=== PATIENT | female | born 1985 | race Caucasian/White ===

== ENCOUNTER → 2016-12-10 | Outpatient (CLI) | payer BC ==
--- NOTE | 2016-12-10 10:24 | US ---
EXAMINATION TYPE: US abdomen complete DATE OF EXAM: 12/10/2016 COMPARISON: NONE CLINICAL HISTORY: RUQ Pain R10.11. pt states ruq pain, worse after eating EXAM MEASUREMENTS: Liver Length: 14.1 cm Gallbladder Wall: 0.2 cm CBD: 0.5 cm Spleen: 9.6 cm Right Kidney: 10.6 x 3.5 x 4.8 cm Left Kidney: 11.2 x 4.3 x 4.9 cm Pancreas: wnl Liver: wnl Gallbladder: completely contracted with stones, strong shadowing, no obvious wall thickening or young cholecystic fluid but shadowing limits this Evidence for sonographic Lin's sign: tender CBD: wnl Spleen: wnl Right Kidney: ? mildly echogenic pyramids Left Kidney: ? mildly echogenic pyramids Upper IVC: wnl Abd Aorta: wnl The liver is homogenous. The intrahepatic portion of the IVC and proximal abdominal aorta are within normal limits. Common bile duct is unremarkable. The visualized portions of the pancreas are homo genous. The spleen is unremarkable. Kidneys are symmetric and free of hydronephrosis. No renal les ions are seen. IMPRESSION: Cholelithiasis.
[2016-12-10 11:12] LABS: ALT 23 U/L (9-52); AST 17 U/L (14-36); Alkaline Phosphatase 47 U/L (38-126); Amylase 42 U/L (30-110); Anion Gap 9 mmol/L; Blood Urea Nitrogen 12 mg/dL (7-17); Calcium 9.5 mg/dL (8.4-10.2); Carbon Dioxide 25 mmol/L (22-30); Chloride 109 mmol/L (98-107); Glucose 81 mg/dL (74-99); Non-African American GFR(MDRD) >60 (>60 ml/min/1.73 sqM); Potassium 4.3 mmol/L (3.5-5.1); Sodium 143 mmol/L (137-145); Total Bilirubin 0.9 mg/dL (0.2-1.3); Total Protein 7.3 g/dL (6.3-8.2)
[2016-12-10 11:17] LABS: Basophils # (A) 0.1 k/uL (0-0.2); Basophils % (A) 1 %; CHCM 32.7; Eosinophils # (A) 0.3 k/uL (0-0.7); Eosinophils % (A) 4 %; HCT 38.6 % (34.0-46.0); HGB 12.6 gm/dL (11.4-16.0); Luc # (Auto) 0.17; Luc % (Auto) 2; Lymphocytes % (A) 27 %; MCH 30.2 pg (25.0-35.0); MCHC 32.7 g/dL (31.0-37.0); MCV 92.2 fL (80.0-100.0); Mean Platelet Volume 7.5; Monocytes # (A) 0.4 k/uL (0-1.0); Monocytes % (A) 6 %; Neutrophils # (A) 4.6 k/uL (1.3-7.7); Neutrophils % (A) 61 %; RBC 4.19 m/uL (3.80-5.40); RDW 12.7 % (11.5-15.5); WBC 7.6 k/uL (3.8-10.6); WBC (Perox) 8.23
== END | disposition home or self-care (01) ==
LOC: RADUSWWP 09:50
PROVIDERS: ATTEND Surgery
DX: K80.20 Calculus of gallbladder without cholecystitis without obstruction (principal); R10.11 Right upper quadrant pain
CPT/HCPCS: 76700; 80053; 82150; 85025

== ENCOUNTER 2016-12-11 12:08 | Day surgery (SDC) | payer BC ==
[2016-12-10 14:39] VITALS: BMI 19.3
--- NOTE | 2016-12-10 19:12 | HP ---
DATE OF ADMISSION: 12/11/2016 CHIEF COMPLAINT: Chronic cholecystitis. HISTORY OF PRESENT ILLNESS: This patient is a 31-year-old female who comes to the office today complaining of right upper quadrant pain. This has been increasing in severity and frequency over the last several weeks. She says she is having episodes of pain almost daily at this point. These usually last for 30 to 45 minutes at a time. She has nausea but no vomiting. She is unable to correlate to any specific foods. She has not noticed any change in the color of her skin, urine or stool. An ultrasound was done today showing a gallbladder completely filled with stones without obvious wall thickening. Labs are pending. Patient denies rectal bleeding or melena. PAST MEDICAL HISTORY: Denies. PAST SURGICAL HISTORY: 1. D&C. 2. Appendectomy. 3. Tubal ligation. MEDICATIONS: None. ALLERGIES: NONE. PHYSICAL EXAM: HEENT is normocephalic, sclerae anicteric. Chest is clear. HEART: Regular rate and rhythm. ABDOMEN: Soft. Mild right upper quadrant tenderness. No rebound or guarding. IMPRESSION: A 31-year-old female with chronic cholecystitis. PLAN: 1. Check preoperative lab work. 2. Proceed with cholecystectomy tomorrow. Risks of bleeding, infection, biloma formation, common bile duct injury, retained CBD stone, trocar-related injury and conversion to an open procedure were discussed. Postoperative diarrhea was also discussed as a possibility. The patient understands and wishes to proceed.
[~2016-12-11 12:08] MED LIST: HEPARIN SODIUM,PORCINE 5,000 UNIT/ML 1 ML VIAL SQ ONE; ceFAZolin 2 GM in SODIUM CHLORIDE 0.9% 100 ML IVPB ONE
[2016-12-11] MEDS ORDERED: MIDAZOLAM 2 MG/2 ML VIAL IV PRN (12:36)
[2016-12-11] MEDS ORDERED: ONDANSETRON 4 MG/2 ML VIAL IVP ONE (12:36)
[2016-12-11] MEDS ORDERED: DEXAMETHASONE SOD PHOSPHATE 10 MG/ML 1 ML VIAL IV ONE (12:36)
[2016-12-11] MEDS ORDERED: LIDOCAINE 1% 20 ML VIAL (10MG/ML) FOR IV START INTRADERMA PRN (12:36)
[2016-12-11] MEDS ORDERED: SCOPOLAMINE 1.5MG/72HR PATCH TRANSDERM ONE (12:36)
[2016-12-11] MEDS ORDERED: LACTATED RINGERS 1,000 ML IV SCH (12:45)
[2016-12-11] MEDS ORDERED: SUCCINYLCHOLINE CHLORIDE 100 MG/5 ML SYR IV ONE (14:24)
[2016-12-11] MEDS ORDERED: HYDROmorphone (PF) 1 MG/ML ONE (14:24)
[2016-12-11] MEDS ORDERED: NEOSTIGMINE 1 MG/ML 10 ML VIAL ONE (14:24)
[2016-12-11] MEDS ORDERED: GLYCOPYRROLATE 0.2 MG/ML 2 ML VIAL ONE (14:24)
[2016-12-11] MEDS ORDERED: LIDOCAINE 1% INJ 10MG/ML (20 ML MDV) ONE (14:24)
[2016-12-11] MEDS ORDERED: PROPOFOL 10 MG/ML 20 ML VIAL IV ONE (14:24)
[2016-12-11] MEDS ORDERED: MIDAZOLAM 2 MG/2 ML VIAL ONE (14:24)
[2016-12-11] MEDS ORDERED: fentaNYL (PF) 50 MCG/ML 2 ML AMP ONE (14:24)
[2016-12-11] MEDS ORDERED: ROCURONIUM BROMIDE 10 MG/ML 10 ML VIAL IV ONE (14:24)
[2016-12-11] MEDS ORDERED: BUPIVACAIN-EPI 0.25%-1:200,000 30 ML VIAL SQ ONE (14:48)
[2016-12-11] MEDS ORDERED: LACTATED RINGERS 1,000 ML IV ONE (15:32)
[2016-12-11 15:56] VITALS: TEMP 97.2
[2016-12-11] MEDS ORDERED: HYDROcodone/APAP 5-325MG 1 EACH TAB PO PRN (16:15)
[2016-12-11] MEDS ORDERED: NALOXONE 0.4 MG/ML 1 ML VIAL IV PRN (16:15)
--- NOTE | 2016-12-11 16:19 | P.OP ---
Date of Procedure: 12/11/16 Preoperative Diagnosis: Postoperative Diagnosis: Procedure(s) Performed: PREOPERATIVE DIAGNOSIS: Chronic cholecystitis POSTOPERATIVE DIAGNOSIS: Same PROCEDURE: Laparoscopic cholecystectomy SURGEON: Hansa EBL: Minimal see anesthesia record ANESTHESIA: Gen. COMPLICATIONS: None OPERATIVE PROCEDURE: The patient was brought and placed on the operating room table in the supine position. The patient was placed under general anesthesia at that time. The abdomen was prepped and draped in the usual sterile fashion. A small vertical infraumbilical incision was made. The fascia was grasped with the Pattie forceps. The fascia was retracted anteriorly. The Veress needle was advanced into the peritoneal cavity. The saline drop test was normal. Insufflation took place up to 15 mmHg. A 5 mm optical trocar was advanced and the peritoneal cavity. 2 additional 5 mm trochars were placed in the right upper quadrant under direct visualization. A 10 mm trocar was advanced into the epigastric incision site. The gallbladder did have evidence of chronic inflammation with a thickened wall. There were numerous gallstones evident in the gallbladder. The gallbladder was retracted superiorly and laterally. The peritoneum overlying the infundibulum was bluntly dissected. The patient's cystic duct was visualized. There was a stone present in the cystic duct region. The duct itself was quite prominent in size. Thankfully given this patient's thin habitus I was able to visualize the junction with the bile duct quite nicely. I also was able to visualize the bifurcation of the hepatic duct. The tissues around the cystic duct were carefully dissected. After doing so the cystic duct was divided after placing a 2-0 Ethibond stitch tied down using the tie knot device and also a clip on the patient's side and a single clip on the specimen side. The patient had a few small branches of the cystic artery that were individually clipped. There was also noted to be a vessel running along the posterior wall the gallbladder that was divided using the Ligaclip. The gallbladder was then removed from the liver bed using electrocautery. The gallbladder was then removed from the epigastric trocar site with an Endo Catch bag. The gallbladder fossa was irrigated with saline. There was no evidence of any bleeding or biliary drainage seen. The trochars were then removed. The fascia at the 10 millimeter site was closed using a [id number] 0 Vicryl stitch. The skin at all 4 sites was closed using a 4- 0 Monocryl stitch. At the end of this procedure the sponge and needle counts were correct. DISPOSITION: Stable to the recovery room Implants: Indications for Procedure: Operative Findings: Description of Procedure:
[2016-12-11] MEDS: HYDROmorphone 1 MG/ML 1 ML SYRINGE IVP PRN ×2 (16:21→16:33)
[2016-12-11 17:01] VITALS: RESP 18
[2016-12-11 17:51] VITALS: BP 106/68; PULSE 64
== END 2016-12-11 18:09 | disposition home or self-care (01) ==
LOC: OR 12:08
PROVIDERS: ATTEND Surgery
DX: K80.10 Calculus of gallbladder with chronic cholecystitis without obstruction (principal); I34.1 Nonrheumatic mitral (valve) prolapse
CPT/HCPCS: 47562; 93005; 81025; 88304; J2250; J1644; J1100; J2710; J0690; J2405; J2001; J3010; J1170; J0330; J2704

== ENCOUNTER → 2017-09-29 | Outpatient (CLI) | payer BC ==
--- NOTE | 2017-10-05 11:55 | HM ---
HOLTER MONITOR REPORT 24 HOUR DCG REPORT: There was no diary provided with this Holter recording. Predominant rhythm appears to be sinus with a heart rate ranged from 46 to 202 beats per minute, but the 202 beats per minute tracing suggests more of an artifact and the real heart rate may be about 120 beats per minute. The average heart rate therefore less than 82. There was a lot of artifact. No major symptoms are reported. There was no evidence of any significant supraventricular or ventricular ectopic beats. There was a lot of artifact. FINAL IMPRESSION: Unremarkable 24 hours DCG. Quality of recording is suboptimal. There was no symptoms. Average heart rate is probably in the 70 range. Rare isolated PACs and PVCs are noted. No significant arrhythmias detected. MMODL / IJN: [id number] /
== END | disposition home or self-care (01) ==
LOC: RADECHMAIN 11:29
PROVIDERS: ATTEND Family Medicine
DX: I49.3 Ventricular premature depolarization (principal); I49.1 Atrial premature depolarization
CPT/HCPCS: 93225; 93226